=== PATIENT | female | born 1980 | race Caucasian/White ===

== ENCOUNTER 2016-10-30 15:03 | Inpatient (IN) | payer OTHER ==
[~2016-10-30] VITALS: Ht 162.6 cm; Wt 80.9 kg
[2016-11-21] VITALS (44 sets, daily range): BP systolic 104–143; BP diastolic 54–87; PULSE 65–106; TEMP 97.9–98.5
[2016-11-21] MEDS ORDERED: PRENATAL1 TA7 PO (07:26)
[2016-11-21] MEDS ORDERED: FIBER CHOICE1 CTB PO (07:27)
[2016-11-21] MEDS ORDERED: ZYRTEC 10MG10 MG PO (07:27)
[2016-11-21 07:53] LABS: BASO % 0.2 % (0.0-2.0); EOS # 0.3 (0.0-0.7); EOS % 2.5 % (0-4.0); GRAN # 7.4 (1.4-6.5); GRAN % 69.3 % (42.2-75.2); HEMOGLOBIN 12.1 g/dl (12.5-16.0); LYMPH # 2.3 (1.2-3.4); LYMPH % 21.2 % (20.0-51.0); MEAN CELL VOLUME 89 fl (80.0-100.0); MEAN CORPUSCULAR HEMOGLOBIN 30 pg (27.0-31.0); MEAN CORPUSCULAR HGB CONC 34 g/dl (33.0-37.0); MEAN PLATELET VOLUME 11.4 fl (7.4-10.4); MONO # 0.7 (0.1-0.6); MONO % 6.4 % (1.7-9.3); PLATELET COUNT 230 K/mm3 (130-400); RED BLOOD COUNT 4.02 M/mm3 (4.10-5.30); REDCELL DISTRIBUTION WIDTH-CV 12.9 % (11.5-14.5); WHITE BLOOD COUNT 10.6 K/mm3 (4.8-10.8)
[2016-11-21 08:19] LABS: HEMATOCRIT 35.7 % (37.0-47.0)
[2016-11-22 00:45] VITALS: BP 106/74; PULSE 83; TEMP 97.6
[2016-11-22 05:00] VITALS: BP 107/70; PULSE 80; TEMP 98.4
[2016-11-22 07:02] VITALS: BP 104/66; PULSE 83; TEMP 98.4
[2016-11-22 08:05] LABS: BASO % 0.2 % (0.0-2.0); EOS # 0.2 (0.0-0.7); EOS % 1.4 % (0-4.0); GRAN # 8.5 (1.4-6.5); GRAN % 77.1 % (42.2-75.2); LYMPH # 1.6 (1.2-3.4); LYMPH % 14.3 % (20.0-51.0); MEAN CELL VOLUME 91 fl (80.0-100.0); MEAN CORPUSCULAR HGB CONC 33 g/dl (33.0-37.0); MEAN PLATELET VOLUME 11.6 fl (7.4-10.4); MONO # 0.7 (0.1-0.6); MONO % 6.5 % (1.7-9.3); PLATELET COUNT 169 K/mm3 (130-400)
[2016-11-22 08:43] LABS: HEMATOCRIT 33.7 % (37.0-47.0); MEAN CORPUSCULAR HEMOGLOBIN 30 pg (27.0-31.0)
[2016-11-22] MEDS ORDERED: IBU800 M1 PO (14:12)
[2016-11-22 16:21] VITALS: BP 112/69; PULSE 104; TEMP 97.4
[2016-11-22 21:40] VITALS: BP 114/69; PULSE 83; TEMP 97.6
[2016-11-23 07:45] VITALS: BP 111/76; PULSE 82; TEMP 98.5
== END 2016-11-23 15:30 | disposition home or self-care (01) | DRG 775 ==
LOC: OB 11-21 06:49 → LDR 11-21 06:49 → OB 11-21 21:00 → EDSTATUS 11-24 09:46 → LDRO 11-24 14:48
PROVIDERS: Student in an Organized Health Care Education/Training Program
PROC: 10E0XZZ Delivery of Products of Conception, External Approach (ICD-10-PCS; principal; 2016-11-21)
PROC: 0KQM0ZZ Repair Perineum Muscle, Open Approach (ICD-10-PCS; 2016-11-21)
PROC: 3E033VJ Introduction of Other Hormone into Peripheral Vein, Percutaneous Approach (ICD-10-PCS; 2016-11-21)
DX: O99.824 Streptococcus B carrier state complicating childbirth (principal); O70.1 Second degree perineal laceration during delivery; O09.513 Supervision of elderly primigravida, third trimester; O34.13 Maternal care for benign tumor of corpus uteri, third trimester; D25.9 Leiomyoma of uterus, unspecified; Z3A.39 39 weeks gestation of pregnancy; Z37.0 Single live birth
CPT/HCPCS: J2540; J2590; J7120

== ENCOUNTER → 2016-12-11 | Outpatient (CLI) | payer OTHER ==
[~2016-12-11] MED LIST: FIBER CHOICE1 CTB PO; IBU800 M1 PO; PRENATAL1 TA7 PO; ZYRTEC 10MG10 MG PO
== END ==
LOC: OLC 13:33
DX: Z39.1 Encounter for care and examination of lactating mother (principal); Z71.89 Other specified counseling

== ENCOUNTER 2018-03-05 08:30 | Outpatient (RCR) | payer OTHER | END 2018-03-08 | disposition home or self-care (01) | LOC: WSPT | DX: M54.41 Lumbago with sciatica, right side (principal) ==

== ENCOUNTER 2018-04-30 07:45 | Outpatient (RCR) | payer OTHER | END 2018-06-09 | disposition home or self-care (01) | LOC: WSPT | DX: M54.41 Lumbago with sciatica, right side (principal) | CPT/HCPCS: G0283-GP ==